=== PATIENT | female | born 1985 | race Caucasian/White ===

== ENCOUNTER 2022-10-26 00:58 | Emergency (ER) | payer SELFPAY ==
[~2022-10-26] VITALS: Ht 152.4 cm; Wt 45.0 kg
[2022-10-26] VITALS (18 sets, daily range): BP systolic 102–124; BP diastolic 62–85
[~2022-10-26 00:58] MED LIST: CIPRO500 MG OR; LORTAB 5 OR; NAPROSYN500 MG OR; PENICILLN VK500 MG OR; TYLENOL500 MG OR
[2022-10-26 01:39] LABS: BASO% 0.6 % (0-3); IMMATURE GRANULOCYTES 0.6 % (0.0-5.0); LYMPH% 31.2 % (15-41); MEAN CORPUSCULAR HGB 22.1 pG CALC (26.0-32.0); MEAN CORPUSCULAR HGB CONC 30.8 g/dL CAL (32.0-36.0); MONO% 6.2 % (2-13); NEUT# 4.12 thou/uL (2.00-7.15); NEUT% 59.4 % (42-76); RED BLOOD COUNT 5.38 mill/uL (4.20-5.60); RED CELL DISTRI WIDTH 17.6 % (11.5-15.5)
[2022-10-26 01:43] LABS: HEMATOCRIT 38.6 % (37.0-47.0); HEMOGLOBIN 11.9 g/dl (12.0-16.0); MEAN CELL VOLUME 71.7 fL CALC (80.0-100.0)
[2022-10-26 02:34] LABS: ALBUMIN 3.6 g/dL (3.2-5.0); ALKALINE PHOSPHATASE 77 u/l (38-126); ANION GAP 10 (6-22 (CALC)); BUN 13 mg/dL (7-17); BUN/CREATININE RATIO 18 (12-20 (CALC)); CARBON DIOXIDE 25 mmol/l (22-30); CHLORIDE 107 mmol/l (95-108); CREATININE 0.7 mg/dL (0.5-1.0); GFR FOR AFR.AMER. > 60 ML/MIN (>=60 (CALC)); GFR OTHER RACES > 60 ML/MIN (>=60 (CALC)); MAGNESIUM 2.3 mg/dL (1.6-2.3); POTASSIUM 3.5 mmol/l (3.5-5.1); SGOT/AST 35 u/l (14-36); SODIUM 138 mmol/l (137-146)
[2022-10-26 02:37] LABS: BILIRUBIN, TOTAL 0.2 mg/dL (0.02-1.3)
[2022-10-26] MEDS ORDERED: PROVENTIL HFA108 MCG IN (04:38)
[2022-10-26] MEDS ORDERED: DOXY-CAPS100 MG PO (04:38)
[2022-10-26] MEDS ORDERED: NARCAN4 MG/0.1 M (04:38)
== END 2022-10-26 06:18 | disposition home or self-care (01) | DRG 917 ==
LOC: ED 00:58
PROVIDERS: Internal Medicine
DX: T40.2X1A Poisoning by other opioids, accidental (unintentional), initial encounter (principal); J18.9 Pneumonia, unspecified organism; F11.10 Opioid abuse, uncomplicated
CPT/HCPCS: J1100